=== PATIENT | female | born 1980 | race Caucasian/White ===

== ENCOUNTER 2022-03-22 13:06 | Emergency (ER) | payer OTHER, MEDICAID, SELFPAY ==
[2022-03-22 13:12] VITALS: BP 129/71; PULSE 90; RESP 14; TEMP 36.4; O2SAT 99
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
[2022-03-22] MEDS: OXYCODONE/ACETAMINOPHEN 5/325 TABLET 1 TAB PO (14:51)
[2022-03-22 15:10] VITALS: BP 122/70; PULSE 79; RESP 16; O2SAT 100
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
== END 2022-03-22 15:13 | disposition home or self-care (01) ==
PROVIDERS: Emergency Provider Student in an Organized Health Care Education/Training Program; Family Provider Physician Assistant; PCP Physician Assistant
DX: S22.20XA Unspecified fracture of sternum, initial encounter for closed fracture (principal); V89.2XXA Person injured in unspecified motor-vehicle accident, traffic, initial encounter
CPT/HCPCS: 99283